=== PATIENT | male | born 2005 | race Caucasian/White ===

== ENCOUNTER → 2023-12-07 07:54 | Outpatient (REF) | payer OTHER, SELFPAY | LOC: DHSLP 07:54 | PROVIDERS: ATTENDING PHYSICIAN Otolaryngology; FAMILY PHYSICIAN Nurse Practitioner | DX: G47.33 Obstructive sleep apnea (adult) (pediatric) (principal) | CPT/HCPCS: 95810 ==

== ENCOUNTER → 2024-07-31 12:42 | Outpatient (REF) | payer OTHER, SELFPAY | LOC: RAD 12:42 | PROVIDERS: ATTENDING PHYSICIAN Family Medicine; FAMILY PHYSICIAN Nurse Practitioner | DX: R19.7 Diarrhea, unspecified (principal); R11.2 Nausea with vomiting, unspecified; Z86.19 Personal history of other infectious and parasitic diseases; R10.9 Unspecified abdominal pain | CPT/HCPCS: 74177; Q9967 ==